=== PATIENT | male | born 1950 | race Two or more races ===

== ENCOUNTER 2017-12-08 10:18 | Emergency (ER) | payer OTHER ==
[~2017-12-08] VITALS: Ht 165.1 cm; Wt 68.5 kg
[2017-12-08] MEDS ORDERED: LIPITOR20 MG (10:32)
[2017-12-08] MEDS ORDERED: LOSARTAN-HCTZ1 EAC2 (10:32)
== END 2017-12-08 10:58 | disposition home or self-care (01) ==
LOC: ER 10:18
DX: K40.90 Unilateral inguinal hernia, without obstruction or gangrene, not specified as recurrent (principal)

== ENCOUNTER → 2017-12-15 09:34 | Outpatient (CLI) | payer OTHER ==
[~2017-12-15 09:34] MED LIST: ASPIR 8181 MG PO; LIPITOR20 MG; LOSARTAN-HCTZ1 EAC2; SURFAK240 M1 PO; ULTRACET PO
== END | disposition home or self-care (01) ==
LOC: EKG 09:34
DX: K40.90 Unilateral inguinal hernia, without obstruction or gangrene, not specified as recurrent (principal); Z01.810 Encounter for preprocedural cardiovascular examination

== ENCOUNTER 2017-12-22 05:45 | Day surgery (SDC) | payer OTHER ==
[~2017-12-22 05:45] MED LIST changes: -SURFAK240 M1 PO; -ULTRACET PO
[2017-12-22] MEDS ORDERED: ULTRACET PO (09:01)
[2017-12-22] MEDS ORDERED: SURFAK240 M1 PO (09:01)
== END 2017-12-22 14:40 | disposition home or self-care (01) ==
LOC: CIR.AMB 05:45
DX: K40.90 Unilateral inguinal hernia, without obstruction or gangrene, not specified as recurrent (principal)

== ENCOUNTER 2018-09-03 13:15 | Emergency (ER) | payer OTHER ==
[~2018-09-03] VITALS: Ht 165.1 cm; Wt 64.4 kg
[~2018-09-03 13:15] MED LIST changes: +SURFAK240 M1 PO; +ULTRACET PO
[2018-09-03] MEDS ORDERED: LOSARTAN-HCTZ1 EAC1 PO (13:29)
[2018-09-03] MEDS ORDERED: ULTRACET PO (22:59)
[2018-09-04] MEDS ORDERED: LEVSIN/SL0.125 MG SL (06:07)
== END 2018-09-03 14:43 | disposition home or self-care (01) ==
LOC: ER 13:15
DX: K57.90 Diverticulosis of intestine, part unspecified, without perforation or abscess without bleeding (principal)

== ENCOUNTER 2018-09-03 22:42 | Emergency (ER) | payer OTHER ==
[~2018-09-03] VITALS: Ht 160 cm; Wt 64.4 kg
[~2018-09-03 22:42] MED LIST changes: +LOSARTAN-HCTZ1 EAC1 PO
[2018-09-03] MEDS ORDERED: ULTRACET PO (22:59)
[2018-09-04] MEDS ORDERED: LEVSIN/SL0.125 MG SL (06:07)
== END 2018-09-04 06:20 | disposition home or self-care (01) ==
LOC: ER 22:42
DX: K57.32 Diverticulitis of large intestine without perforation or abscess without bleeding (principal); R10.32 Left lower quadrant pain

== ENCOUNTER → 2020-10-30 | Outpatient (CLI) | payer OTHER ==
[~2020-10-30] MED LIST changes: +LEVSIN/SL0.125 MG SL
== END | disposition home or self-care (01) ==
LOC: NUCLEAR 07:30
PROVIDERS: ATTEND Internal Medicine Cardiovascular Disease
DX: I11.9 Hypertensive heart disease without heart failure (principal); E78.00 Pure hypercholesterolemia, unspecified; I20.8 Other forms of angina pectoris
CPT/HCPCS: 78452; 93017; A9500; J0153

== ENCOUNTER 2022-07-29 07:29 | Emergency (ER) | payer OTHER ==
[~2022-07-29] VITALS: Ht 162.6 cm; Wt 55.8 kg
[2022-07-29] MEDS ORDERED: LOSARTAN POTASS25 MG PO (07:49)
[2022-07-29] MEDS ORDERED: COZAAR100 MG PO (07:49)
== END 2022-07-29 09:22 | disposition home or self-care (01) ==
LOC: ER 07:29
DX: M79.671 Pain in right foot (principal)

== ENCOUNTER 2022-09-09 08:09 | Emergency (ER) | payer OTHER ==
[~2022-09-09] VITALS: Ht 162.6 cm; Wt 56.7 kg
[~2022-09-09 08:09] MED LIST changes: +COZAAR100 MG PO; +LOSARTAN POTASS25 MG PO
== END 2022-09-09 10:31 | disposition home or self-care (01) ==
LOC: ER 08:09
DX: N40.1 Benign prostatic hyperplasia with lower urinary tract symptoms (principal); R33.8 Other retention of urine; I10 Essential (primary) hypertension

== ENCOUNTER 2022-09-27 06:25 | Emergency (ER) | payer OTHER ==
[~2022-09-27] VITALS: Ht 162.6 cm; Wt 55.3 kg
[2022-09-27] MEDS ORDERED: HYDROCHLOROTH12.5 MG PO (06:36)
[2022-09-27] MEDS ORDERED: ATORVASTATIN CA40 MG PO (06:36)
== END 2022-09-27 10:35 | disposition home or self-care (01) ==
LOC: ER 06:25
DX: K59.00 Constipation, unspecified (principal); I10 Essential (primary) hypertension; N40.0 Benign prostatic hyperplasia without lower urinary tract symptoms

== ENCOUNTER 2024-02-07 06:26 | Emergency (ER) | payer OTHER ==
[~2024-02-07] VITALS: Ht 162.6 cm; Wt 54.4 kg
[~2024-02-07 06:26] MED LIST changes: +ATORVASTATIN CA40 MG PO; +HYDROCHLOROTH12.5 MG PO
[2024-02-07 06:57] VITALS: BP 124/74; O2SAT 96
[2024-02-07] MEDS ORDERED: KETOROLAC TROMETHAMINE 15 MG VIAL IM STA (08:27)
[2024-02-07] MEDS ORDERED: ORPHENADRINE CITRATE 30 MG/ML AMPUL IM STA (08:27)
[2024-02-07] MEDS ORDERED: ORPHENADRINE CITRATE 30 MG/ML AMPUL ONE (08:37)
[2024-02-07] MEDS ORDERED: KETOROLAC TROMETHAMINE 60 MG VIAL IM ONE (08:37)
[2024-02-07] MEDS ORDERED: CELEBREX200MG PO (11:15)
[2024-02-07] MEDS ORDERED: METAXALONE800 MG PO (11:15)
== END 2024-02-07 11:24 | disposition home or self-care (01) ==
LOC: ER 06:28
DX: M62.838 Other muscle spasm (principal); I10 Essential (primary) hypertension
CPT/HCPCS: 36415; 72040; 96372; 99283; J1885; J2360

== ENCOUNTER → 2024-02-29 | Emergency (ER) | payer OTHER ==
[~2024-02-29] VITALS: Ht 162.6 cm; Wt 54.4 kg
[~2024-02-29] MED LIST changes: +CELEBREX200MG PO; +KETOROLAC TROMETHAMINE 30 MG VIAL IM ONE; +KETOROLAC TROMETHAMINE 30 MG VIAL ONE; +METAXALONE800 MG PO; +ORPHENADRINE CITRATE 30 MG/ML AMPUL IM ONE; +ORPHENADRINE CITRATE 30 MG/ML AMPUL ONE
== END | disposition home or self-care (01) ==
LOC: ER 06:18
DX: M50.30 Other cervical disc degeneration, unspecified cervical region (principal); M77.8 Other enthesopathies, not elsewhere classified
CPT/HCPCS: 96369; 99282; J1885; J2360

== ENCOUNTER 2024-04-28 04:33 | Emergency (ER) | payer OTHER ==
[~2024-04-28] VITALS: Ht 162.6 cm; Wt 54.4 kg
[~2024-04-28 04:33] MED LIST changes: -KETOROLAC TROMETHAMINE 30 MG VIAL IM ONE; -KETOROLAC TROMETHAMINE 30 MG VIAL ONE; -ORPHENADRINE CITRATE 30 MG/ML AMPUL IM ONE; -ORPHENADRINE CITRATE 30 MG/ML AMPUL ONE
[2024-04-28] MEDS ORDERED: KETOROLAC TROMETHAMINE 60 MG VIAL IM STA (05:11)
[2024-04-28] MEDS ORDERED: KETOROLAC TROMETHAMINE 60 MG VIAL IM ONE (05:18)
[2024-04-28 06:46] LABS: HEMATOCRIT 39.3 % (39.0-48.0); HEMOGLOBIN 13.3 g/dL (13-16.00); MEAN CELL VOLUME 89.1 fL (80.0-100.00); MEAN CORPUSCULAR HEMOGLOBIN 30.1 pg (27.00-32.0); MEAN CORPUSCULAR HGB CONC 33.7 g/dl (32.0-36.0); PLATELET COUNT 182 K/uL (150-450); RED BLOOD COUNT 4.41 M/uL (4.00-6.00); RED CELL DISTRIBUTION WIDTH 13.9 % (11.5-14.5)
[2024-04-28] MEDS ORDERED: NAPR500T14 PO (07:22)
[2024-04-28] MEDS ORDERED: CEPHALEXIN500 MG PO (07:22)
== END 2024-04-28 07:29 | disposition home or self-care (01) ==
LOC: ER 04:36
PROVIDERS: General Practice
DX: M25.472 Effusion, left ankle (principal); I10 Essential (primary) hypertension; M77.32 Calcaneal spur, left foot; M85.872 Other specified disorders of bone density and structure, left ankle and foot
CPT/HCPCS: 36415; 73600; 96372; 99283; J1885